=== PATIENT | male | born 1990 | race Caucasian/White ===

== ENCOUNTER 2018-11-11 10:29 | Emergency (ER) | payer MEDICAID ==
[~2018-11-11] VITALS: Ht 185.4 cm; Wt 102.0 kg
[2018-11-11] MEDS ORDERED: SODIUM CHLORIDE 0.9% 1,000 ML IV ONE (12:15)
[2018-11-11] MEDS ORDERED: KETOROLAC 30MG/ML VIAL IV ONE (12:15)
[2018-11-11 12:33] LABS: BASOPHILS % 0.9 % (0.0-2.0); HEMATOCRIT. 51.7 % (42.0-52.0); HEMOGLOBIN. 17.7 g/dL (14.0-18.0); LYMPHOCYTES % 17.9 % (20.0-50.0); MEAN CORPUSCULAR HEMOGLOBIN 30.4 pg (28.0-32.0); MEAN CORPUSCULAR VOLUME 88.8 fL (80.0-94.0); MEAN PLATELET VOLUME 8.6 fl (7.4-10.4); MONOCYTES % 9.3 % (2.0-8.0); NEUTROPHILS % 69.9 % (40.0-76.0); PLATELET 265 x1000/uL (130-400); RED BLOOD CELL COUNT 5.83 mill/uL (4.7-6.1); RED CELL DISTRIBUTION WIDTH 13.7 % (11.6-14.6)
[2018-11-11 12:35] LABS: CHLORIDE 105 mEq/L (98-107)
[2018-11-11 12:38] LABS: INR 1.1
[2018-11-11] MEDS ORDERED: HYDROCODONE/ACETAMINOPHEN 5/325MG TABLET PO ONE (13:00)
[2018-11-11 14:40] VITALS: BP 119/49
== END 2018-11-11 14:45 | disposition home or self-care (01) ==
LOC: ER 10:29
DX: R59.0 Localized enlarged lymph nodes (principal); R61 Generalized hyperhidrosis; R63.4 Abnormal weight loss
CPT/HCPCS: 36415; 76881; 80053; 85025; 85610; 96374; 99284; J1885; J7030